=== PATIENT | male | born 1990 | race Hispanic/Latino ===

== ENCOUNTER 2018-11-30 15:00 | Emergency (ER) | payer SELFPAY ==
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
== END 2018-11-30 18:46 | disposition home or self-care (01) ==
LOC: ER 15:00
DX: S39.012A Strain of muscle, fascia and tendon of lower back, initial encounter (principal); S29.012A Strain of muscle and tendon of back wall of thorax, initial encounter; V49.50XA Passenger injured in collision with unspecified motor vehicles in traffic accident, initial encounter; M25.512 Pain in left shoulder; M25.522 Pain in left elbow; M25.532 Pain in left wrist
CPT/HCPCS: 72100; 99283